=== PATIENT | female | born 1950 | race Caucasian/White ===

== ENCOUNTER → 2018-03-03 12:46 | Outpatient (CLI) | payer MEDICARE, SELFPAY ==
--- NOTE | 2018-03-03 | DI.US.S_ITS ---
PROCEDURE: US ABDOMEN COMPLETE INDICATIONS: HBV CARRIER TECHNIQUE: Real-time scanning was performed of the abdominal and retroperitoneal organs, with image documentation. COMPARISON: None. FINDINGS: Liver: Liver is normal in size and homogeneous in echotexture. Gallbladder: Gallbladder is clear with normal wall thickness Biliary ducts: Intrahepatic bile ducts are non-dilated. Extrahepatic bile duct caliber measures 5 mm. Normal is 6-7 mm or less in diameter, or 10 mm or less post-cholecystectomy. Pancreas: Pancreas is obscured by bowel gas Spleen: Spleen is normal in size and homogeneous in echotexture. Kidneys: Kidneys are normal in size and echotexture. Right kidney measures 9.5 cm long; left kidney measures 9.1 cm long. No hydronephrosis or nephrolithiasis. No solid masses. Aorta: Visualized aorta is normal in caliber at less than 3 cm. proximal aorta is obscured by bowel gas Iliacs: Proximal common iliac arteries are normal in caliber at less than 2.5 cm. IVC: Intrahepatic inferior vena cava is patent. Miscellaneous: No free abdominal fluid. IMPRESSION: 1. No acute findings are identified. Liver appears normal sonographically. 2. Pancreas and proximal abdominal aorta are obscured by bowel gas. Dictated by: Itz Omalley M.D. on 03/03/2018 at 15:21 Approved by: Itz Omalley M.D. on 03/03/2018 at 15:22
== END ==
PROVIDERS: PCP Family Medicine; Visit Provider Family Medicine
DX: B18.1 Chronic viral hepatitis B without delta-agent (principal)
CPT/HCPCS: 76700

== ENCOUNTER → 2018-03-29 16:21 | Outpatient (CLI) | payer MEDICARE, MEDICAID, SELFPAY ==
--- NOTE | 2018-03-29 | DI.RAD.S_ITS ---
PROCEDURE: XR HAND LT MIN 3V INDICATIONS: HAND PAIN TECHNIQUE: 3 views of the hand(s) acquired. COMPARISON: None. FINDINGS: Bones: No fractures or dislocations. Carpal bones are normally aligned. No suspicious bony lesions. Multilevel joint narrowing with periarticular osteophyte formation. Soft tissues: No suspicious soft tissue calcifications. IMPRESSION: No displaced fracture seen. If there is continued pain, followup exam or additional imaging such as MRI or CT could be performed for further assessment. Dictated by: Neil Griffin [facility] Interpreted: Rigoberto Doherty MD on 03/29/2018 at 17:14 Approved by: Rigoberto Doherty M.D. on 03/29/2018 at 19:51
== END ==
PROVIDERS: PCP Family Medicine; Visit Provider Physician Assistant
DX: M79.642 Pain in left hand (principal)
CPT/HCPCS: 73130

== ENCOUNTER → 2018-06-11 09:42 | Outpatient (CLI) | payer MEDICARE, MEDICAID, SELFPAY ==
[2018-06-11 10:08] LABS: RBC Urine None Seen (0-5/HPF)
[2018-06-11 10:41] LABS: Appearance Urine UA CLEAR; Bilirubin Urine UA NEGATIVE (NEGATIVE); Color Urine UA YELLOW; Glucose Urine UA NEGATIVE (Normal); Ketones Urine UA NEGATIVE (NEGATIVE); Leukocyte Esterase Urine UA TRACE (NEGATIVE); Nitrite Urine UA Negative (Negative); Occult Blood Urine UA NEGATIVE (Negative); Protein Urine UA NEGATIVE (Negative); Urobilinogen Urine UA 0.2 E.U./dL (0.2)
[2018-06-11 10:50] LABS: Bacteria Urine Occasional (0-1); Culture Indicated Urine Specimen Cultured; Squamous Epithelial Cell Urine 0-1 /HPF; WBC Urine 0-1/HPF (0-5/HPF)
== END ==
PROVIDERS: PCP Family Medicine; Visit Provider Physician Assistant
DX: N18.9 Chronic kidney disease, unspecified (principal)
CPT/HCPCS: 81001; 87086

== ENCOUNTER → 2018-08-26 10:38 | Outpatient (CLI) | payer MEDICARE, SELFPAY ==
--- NOTE | 2018-08-26 | DI.CT.S_ITS ---
PROCEDURE: CT HEAD/BRAIN WO CON INDICATIONS: Vertigo of central origin, right ear TECHNIQUE: Noncontrast 4.5 mm thick angled axial sections acquired from the foramen magnum to the vertex, with coronal and sagittal reformats. For radiation dose reduction, the following was used: automated exposure control, adjustment of mA and/or kV according to patient size. COMPARISON: None. FINDINGS: Image quality: Excellent. CSF spaces: Basal cisterns are patent. No extra-axial fluid collections. The ventricles are symmetric in size and shape. Brain: No intracranial bleeds or masses. There is cerebral volume loss for age, with resultant ventricular and sulcal prominence. There are periventricular and deep white matter chronic small vessel ischemic changes. There is intracranial internal carotid artery atherosclerosis. Skull and face: Calvarium and visualized facial bones appear intact, without suspicious lesions. Sinuses: Visualized sinuses and mastoids are clear. IMPRESSION: No CT evidence of acute intracranial pathology. Age-appropriate atrophy and mild periventricular white matter microangiopathic changes. Dictated by: Christos García M.D. on 08/26/2018 at 10:59 Approved by: Christos García M.D. on 08/26/2018 at 10:59
== END ==
PROVIDERS: PCP Family Medicine; Visit Provider Family Medicine
DX: H81.41 Vertigo of central origin, right ear (principal)
CPT/HCPCS: 70450

== ENCOUNTER 2021-08-18 20:42 | Emergency (ER) | payer MEDICARE, MEDICAID, SELFPAY ==
[2021-08-18 20:46] VITALS: BP 147/60; PULSE 101; PULSE 93; RESP 18; RESP 25; TEMP 36.4; O2SAT 96; O2SAT 98
[2021-08-18 20:53] VITALS: BP 147/60; PULSE 98; RESP 31; O2SAT 96
--- NOTE | 2021-08-18 20:53 | DI.RAD.S_ITS ---
PROCEDURE: XR CHEST 1V INDICATIONS: chest pain TECHNIQUE: One view of the chest was acquired. COMPARISON: [facility], , CHEST 2 VIEW, 08/12/2017, 14:21. FINDINGS: Surgical changes and devices: None. Lungs and pleura: Lungs are clear. No pleural effusions or pneumothorax. Mediastinum: Mediastinal contours appear normal. Heart size is normal. Bones and chest wall: No suspicious bony lesions. Overlying soft tissues appear unremarkable. IMPRESSION: No acute cardiopulmonary process demonstrated radiographically. Dictated by: Kwabena Arredondo M.D. on 08/18/2021 at 21:16 Approved by: Kwabena Arredondo M.D. on 08/18/2021 at 21:17
[2021-08-18 21:00] VITALS: BP 147/64; PULSE 85; RESP 8; O2SAT 95
[2021-08-18 21:02] LABS: Add Manual Diff / Slide Review NO; Basophils Absolute Auto 0 /uL (0-100); Basophils Percent Auto 0.3 % (0-2); Eosinophils Absolute Auto 200 /uL (0-450); Eosinophils Percent Auto 1.8 % (2-4); Hemoglobin 12.5 g/dL (12.0-16.0); Lymphocytes Absolute Auto 2900 /uL (1100-4500); Lymphocytes Percent Auto 27.9 % (25-40); Mean Corpuscular HGB Conc 33.8 % (30-36); Mean Corpuscular Hemoglobin 32.9 PG (26-34); Mean Corpuscular Volume 97.2 fL (80-100); Monocytes Absolute Auto 700 /uL (0-900); Monocytes Percent Auto 6.7 % (3-14); Neutrophils Absolute Auto 6600 /uL (1500-7000); Neutrophils Percent Auto 63.3 % (50-75); Platelet Count 319 X10^3/uL (150-400); Red Blood Cell Count 3.81 X10^6/uL (4.0-5.2); Red Cell Distribution Width 12.2 % (11.6-14.8); White Blood Cell Count 10.4 X10^3/uL (4.5-11.0)
[2021-08-18 21:22] LABS: Alanine Aminotransferase 17 IU/L (<35); Albumin 4.6 g/dL (3.5-5.0); Albumin Globulin Ratio 1.5 (1.0-2.8); Alkaline Phosphatase 76 U/L (38-126); Aspartate Aminotransferase 29 IU/L (14-36); BUN Creatinine Ratio 10.4 (6-22); Bilirubin Total 0.4 mg/dL (0.2-1.3); Blood Urea Nitrogen 16 mg/dL (7-17); Calcium 9.7 mg/dL (8.4-10.2); Carbon Dioxide 23 mmol/L (22-32); Chloride 102 mmol/L (98-107); Creatine Kinase 131 U/L (30-135); Estimated Glomerular Filt Rate 33.2 mL/min (>60); Globulin 3.1 g/dL (1.7-4.1); Glucose 171 mg/dL (80-110); HEMOLYSIS < 15 (0-50); Lipase 89 U/L (23-300); Potassium 3.9 mmol/L (3.4-5.1); Sodium 134 mmol/L (137-145); Total Protein 7.7 g/dL (6.3-8.2)
[2021-08-18 21:30] VITALS: PULSE 82; RESP 12; O2SAT 98
--- NOTE | 2021-08-18 21:30 | ED_ITS ---
HPI - Chest Pain General Chief Complaint: Chest Pain Stated Complaint: Chest pain/ Fit for skilled nursing Time Seen by Provider: 08/18/21 21:00 Source: patient and EMS Mode of arrival: EMS History of Present Illness HPI narrative: 70-year-old woman presents her police with complaints of chest pain experienced during arrest this evening. She states she has been having intermittent chest pain over the last number of weeks that currently has resolved but she does complain of right shoulder pain. There is no reports of injury to that area. She states that the chest pain has been the left anterior wall, is worse with palpation and deep breathing and has intermittently been present for the last month. It is deeper than her breast tissue when she has not had similar findings. Today she notes which she describes as right shoulder pain but on palpation is actually right trapezius muscle spasm with no reports of injury or trauma. She has no cervical spine tenderness. She has not had recent fever, cough, chills, abdominal pain, vomiting, diarrhea. No lower extremity edema, no headaches and no acute neurologic changes. Review of Systems Review of Systems Narrative: Remainder of complete review of systems is otherwise unremarkable except for that included in the HPI. Patient History Medical History Hyperlipidemia Hypertension Hypothyroidism (acquired) Exam Narrative Exam Narrative: General: Frail appearing woman, in no acute distress. Able to give a complete and coherent history. HEENT: Moist mucous membranes, normal sclera with reactive pupils, Neck: No JVD, muscle spasm and tenderness in the right trapezius muscle. She has no midline cervical spine tenderness. Respiratory: Lungs are clear to auscultation, no wheezing no rales no rhonchi. Full and symmetrical air movement Cardiac: Regular rate and rhythm no murmurs appreciated on my exam today, bruits Chest: Tenderness along the left anterior clavicular line approximately rib 6. Deeper than breast tissue with normal breast to palpation. Abdomen: Soft, nontender, good bowel tones, no flank pain Skin: Warm and dry, no rashes, no skin changes of the chest wall with area of tenderness Neurologic: Grossly neurologically intact with no obvious asymmetries or abnormalities Extremities: No trauma, well perfused. Right shoulder with full range of motion and no tenderness. Psych: Cooperative, appropriate insight and affect Initial Vital Signs Initial Vital Signs: Vital Signs Temperature 97.6 F 08/18/21 20:46 Pulse Rate 93 H 08/18/21 20:46 Respiratory Rate 18 08/18/21 20:46 Blood Pressure 147/60 H 08/18/21 20:46 Pulse Oximetry 96 08/18/21 20:46 Course Orders Ordered: ED Orders 08/18/21 20:50 Complete Blood Count AUTO DIFF Stat Comprehensive Metabolic Panel Stat Lipase Stat Magnesium Stat Troponin & CK Cardiac Panel Stat 08/18/21 20:53 XR chest 1V Stat EKG-12 Lead Stat Discontinued Medications Ketorolac Tromethamine (Ketorolac 30 Mg/Ml Vial) 15 mg IV NOW ONE Stop: 08/18/21 21:38 Last Admin: 08/18/21 21:49 Dose: 15 mg Documented by: DEQUAN Vital Signs Vital signs: Vital Signs - 8 hr 08/18/21 20:46 08/18/21 20:53 08/18/21 21:00 Temperature 97.6 F Pulse Rate 101 H 98 H 85 Respiratory Rate 25 H 31 H 8 L Blood Pressure 147/60 H 147/60 H 147/64 H Pulse Oximetry 98 96 95 08/18/21 21:30 08/18/21 21:53 Temperature Pulse Rate 82 74 Respiratory Rate 12 37 H Blood Pressure 114/71 Pulse Oximetry 98 98 MDM - Chest Pain Lab Data Result diagrams: 08/18/21 20:50 08/18/21 20:50 Labs: Lab Results 08/18/21 08/18/21 Range/Units 20:50 20:50 WBC 10.4 (4.5-11.0) X10^3/uL RBC 3.81 L (4.0-5.2) X10^6/uL Hgb 12.5 (12.0-16.0) g/dL Hct 37.0 (36-46) % MCV 97.2 (80-100) fL MCH 32.9 (26-34) PG MCHC 33.8 (30-36) % RDW 12.2 (11.6-14.8) % Plt Count 319 (150-400) X10^3/uL Neut % (Auto) 63.3 (50-75) % Lymph % (Auto) 27.9 (25-40) % Knott % (Auto) 6.7 (3-14) % Eos % (Auto) 1.8 L (2-4) % Baso % (Auto) 0.3 (0-2) % Neut # (Auto) 6600 (8355-3908) /uL Lymph # (Auto) 2900 (1455-5857) /uL Knott # (Auto) 700 (0-900) /uL Eos # (Auto) 200 (0-450) /uL Baso # (Auto) 0 (0-100) /uL Sodium 134 L (137-145) mmol/L Potassium 3.9 (3.4-5.1) mmol/L Chloride 102 (98-107) mmol/L Carbon Dioxide 23 (22-32) mmol/L BUN 16 (7-17) mg/dL Creatinine 1.54 H (0.52-1.04) mg/dL Estimated GFR 33.2 L (>60) mL/min BUN/Creatinine Ratio 10.4 (6-22) Glucose 171 H (80-110) mg/dL Calcium 9.7 (8.4-10.2) mg/dL Magnesium 2.0 (1.6-2.3) mg/dL Total Bilirubin 0.4 (0.2-1.3) mg/dL AST 29 (14-36) IU/L ALT 17 (<35) IU/L Alkaline Phosphatase 76 (38-126) U/L Total Creatine Kinase 131 (30-135) U/L CK-MB (CK-2) 1.00 (<2.37) ng/mL CK-MB (CK-2) Rel Index 0.8 L (1.5-5.0) % Troponin I < 0.012 (0.01-0.034) ng/mL Total Protein 7.7 (6.3-8.2) g/dL Albumin 4.6 (3.5-5.0) g/dL Globulin 3.1 (1.7-4.1) g/dL Albumin/Globulin Ratio 1.5 (1.0-2.8) Lipase 89 (23-300) U/L Imaging Data Chest x-ray: Radiologist's Impression: FINDINGS:? ? Surgical changes and devices:? None.? ? Lungs and pleura:? Lungs are clear.? No pleural effusions or pneumothorax.? ? Mediastinum:? Mediastinal contours appear normal.? Heart size is normal.? ? Bones and chest wall:? No suspicious bony lesions.? Overlying soft tissues appear unremarkable.? ? IMPRESSION:? No acute cardiopulmonary process demonstrated radiographically. ? ? Dictated by: Kwabena Arredondo M.D. on 08/18/2021 at 21:16 ? ? ECG Data Interpretation: Sinus tachycardia at 100 Normal axis, normal intervals No acute ischemic changes MDM Narrative Medical decision making narrative: 70-year-old woman with a month of intermittent left anterior chest wall pain consistent with musculoskeletal pain. No evidence of acute coronary syndrome, underlying pulmonary issue or abnormalities with breast tissue. Right trapezius muscle spasm uncertain etiology. There is no evidence of acute coronary syndrome, cardiac arrhythmias, pneumonias, pneumothorax, widened mediastinum, upper GI bleeding, surgical abdomen or evidence of infection. Patient is given a dose of IV Toradol. Reassurance is given. At this point she is fit for skilled nursing and safe for discharge with officers. Discharge Plan Departure Patient Disposition: Home Clinical Impression: Anterior chest wall pain, Trapezius muscle spasm Instructions: DI for Musculoskeletal Pain Activity Restrictions/Additional Instructions: Thank you for coming in today Your blood work was reassuring. There is no evidence of acute infection, heart attack or anemia. Your EKG was reassuring in your chest x-ray was normal. The pain that you are experiencing on the left side is very likely chest wall/musculoskeletal pain. Using ibuprofen or Tylenol will likely help with this. The right shoulder pain that you are experiencing is actually right trapezius muscle spasm. Without obvious identified injury the most likely explanation for this is that you slept wrong last night and the muscle is a bit irritated. At this time there is no reason for additional intervention or hospitalization. You are safe for discharge Fit for skilled nursing Referrals: Shakira Fitzpatrick MD [Primary Care Provider] -
[2021-08-18 21:33] LABS: Troponin I < 0.012 ng/mL (0.01-0.034)
[2021-08-18 21:37] LABS: CKMB % Relative Index 0.8 % (1.5-5.0)
[2021-08-18] MEDS: KETOROLAC 30 MG/ML VIAL 15 MG IV (21:49)
[2021-08-18 21:53] VITALS: BP 114/71; PULSE 74; RESP 37; O2SAT 98
== END 2021-08-18 22:04 | disposition home or self-care (01) ==
PROVIDERS: Emergency Provider Emergency Medicine; PCP Family Medicine
DX: Z02.89 Encounter for other administrative examinations (principal); R07.89 Other chest pain; M62.838 Other muscle spasm; R00.0 Tachycardia, unspecified
CPT/HCPCS: 36415; 71045; 80053; 82550; 82553; 83690; 83735; 84484; 85025; 93005; 93010; 96374; 99284; J1885

== ENCOUNTER 2022-05-03 09:27 | Emergency (ER) | payer MEDICARE, MEDICAID, SELFPAY ==
[2022-05-03 09:37] VITALS: BP 177/72; PULSE 60; RESP 14; TEMP 36.8; O2SAT 98; BMI 26.2
--- NOTE | 2022-05-03 09:40 | DI.RAD.S_ITS ---
PROCEDURE: XR WRIST RT MIN 3V INDICATIONS: Wrist pain/swelling TECHNIQUE: 4 views of the wrist were acquired. COMPARISON: None. FINDINGS: Bones: There is a transverse, mildly impacted fracture of the distal radius, with mild dorsal angulation. There is believed to be intra-articular involvement, yet this is not well seen. There is an associated mildly displaced ulnar styloid fracture, with fragmentation. No radiocarpal dislocation can be seen. No lunate dislocation is seen. Age-appropriate bony degenerative changes are seen. Scaphoid view: No navicular fractures are seen. Soft tissues: No suspicious soft tissue calcifications. IMPRESSION: Distal radius fracture, with mild impaction and comminution. There is dorsal angulation. There is believed to be intra-articular involvement, although this is not well seen. There is an associated mildly displaced, fragmented fracture of the ulnar styloid. Dictated by: Loi Chacon M.D. on 05/03/2022 at 9:08 Approved by: Loi Chcaon M.D. on 05/03/2022 at 9:09
--- NOTE | 2022-05-03 09:47 | ED_ITS ---
HPI - Extremity Injury (Upper) General Chief Complaint: Extremity Injury, Upper Stated Complaint: Fell on right arm Time Seen by Provider: 05/03/22 09:47 Source: patient Mode of arrival: Ambulatory Limitations: no limitations History of Present Illness HPI narrative: This is a 71-year-old female with history of hypertension dyslipidemia hypothyroidism who presents for a ground level fall after tripping over some objects in her home. Patient states it occurred last night she fell on an outstretched hand. She is had pain swelling a little bit of deformity since then. She denies any numbness or tingling she states she is able to fully flex and extend her fingers which is only mildly painful. Patient does have some bruising of the dorsum of the hand and the wrist as well as some swelling. No issues with movement of the thumb. Patient denies injuries elsewhere. She did not strike her head no neck or back pain. She is not anticoagulated. She denies any other injuries or surgeries to that area. No known drug allergies. No tobacco, alcohol or illicit. Patient notes she took a dose of Tylenol this morning for pain she defers anything additional at this time. Related Data Previous Rx's Medication Instructions Recorded oxycodone 5 mg tablet 5 mg PO Q6H PRN pain #14 tabs 05/03/22 Allergies Allergy/AdvReac Type Severity Reaction Status Date / Time No Known Drug Allergies Allergy Verified 05/03/22 09:36 Review of Systems Review of Systems ROS Unobtainable: All systems reviewed & are unremarkable except as noted in HPI and below Patient History Medical History Hyperlipidemia Hypertension Hypothyroidism (acquired) Social History Smoking Status: Never smoker Smoking Status: Never smoker Substance Use Type: does not use Exam Narrative Exam Narrative: GENERAL: Alert and oriented x three, elderly female in mild distress HEENT: Head normocephalic, atraumatic, EOMI, pupils reactive, face symmetric, moist mucous membranes NECK: Supple, full range of motion CARDIOVASCULAR: Regular rate and rhythm without murmurs, rubs or gallops. RESPIRATORY: Breath sounds equal bilaterally, no wheezes rales or rhonchi. ABDOMEN: Soft, nontender. Normoactive bowel sounds all 4 quadrants. No guarding or rebound, rigidity, no mass EXTREMITIES: Decreased range of motion at the wrist, full range of motion of all 5 fingers flexion extension, adduction and abduction, patient has mild deformity comparison to the alternative hand. There is ecchymosis over the dorsum of the hand extending over the wrist. There is generalized swelling of the wrist and hand. No erythema, no warmth. Patient has full range of motion at the elbow and shoulder with no other bony tenderness except over the distal radius and ulna. Patient has 2+ radial pulse. Cap refill less than 2 seconds all 5 fingers No clubbing or edema. Neurovascularly intact. Normal sensation throughout all 5 fingers. NEUROLOGICAL: Cranial nerves II through XII grossly intact. Moving all extremities SKIN: Warm, dry, no petechiae, no rashes or lesions, no lacerations or cuts to t he hand or forearm. Initial Vital Signs Initial Vital Signs: Vital Signs Temperature 98.2 F 05/03/22 09:37 Pulse Rate 60 05/03/22 09:37 Respiratory Rate 14 05/03/22 09:37 Blood Pressure 177/72 H 05/03/22 09:37 Pulse Oximetry 98 05/03/22 09:37 Oxygen Delivery Method 05/03/22 09:37 Procedures Nerve Block Nerve Block 1: Time of procedure: 10:10 Time out performed: Yes Local Anesthetic: lidocaine 1% Amount of anesthesia used (mL): 4 Side: right Nerve Blocks: hematoma block (distal wrist) Procedure Successful: Yes Patient Tolerated Procedure: Well Complications: none Orthopedic Splinting/Casting Injury #1: Time of procedure: 10:22 Upper Extremity Injury Location: wrist Upper Extremity Immobilizer: sugar tong splint Post splinting neuro exam: intact and no change Post splinting vascular exam: intact Placed by: Provider Course Orders Ordered: ED Orders 05/03/22 09:40 XR wrist RT min 3V Stat Vital Signs Vital signs: Vital Signs - 8 hr 05/03/22 09:37 Temperature 98.2 F Pulse Rate 60 Respiratory Rate 14 Blood Pressure 177/72 H Pulse Oximetry 98 Oxygen Delivery Method Room Air MDM - Extremity Injury (Upper) Imaging Data Extremity x-ray #1: Radiologist's Impression: [address] [address] XRay Report Signed Patient: Maricruz Concepcion MR#: [id number] : 1950 Acct:[id number] Age/Sex: 71 / F Date of Service: 05/03/22 Loc: ED Accession Number: [id number] ?? Procedure: XR wrist RT min 3V Ordering Provider: Juana Vizcaino D.O. PROCEDURE:? XR WRIST RT MIN 3V ? INDICATIONS: Wrist pain/swelling ? TECHNIQUE:? 4 views of the wrist were acquired.? ? COMPARISON:? None. ? FINDINGS:? ? Bones:? There is a transverse, mildly impacted fracture of the distal radius, with mild dorsal angulation.? There is believed to be intra-articular involvement, yet this is not well seen. ? There is an associated mildly displaced ulnar styloid fracture, with fragmentation. ? No radiocarpal dislocation can be seen.? No lunate dislocation is seen. ? Age-appropriate bony degenerative changes are seen.? ? Scaphoid view:? No navicular fractures are seen. ? Soft tissues:? No suspicious soft tissue calcifications.? ? ? IMPRESSION:? ? Distal radius fracture, with mild impaction and comminution.? There is dorsal angulation. ?There is believed to be intra-articular involvement, although this is not well seen. ? There is an associated mildly displaced, fragmented fracture of the ulnar styloid.? ? ? Dictated by: Loi Chacon M.D. on 05/03/2022 at 9:08 ? ? Approved by: Loi Chacon M.D. on 05/03/2022 at 9:09?? MDM Narrative Medical decision making narrative: This is a 71-year-old female who is on anticoagulated with mechanical ground level fall on outstretched hand with mild deformity suspicious for fracture with bruising and swelling. X-ray was obtained and shows distal radius and ulnar fracture with likely intra-articular involvement. Patient had hematoma block with improvement of pain, sugar-tong splint was placed by myself with mild direct manipulation at the dorsal fragment and discussed follow-up. Return precautions. Patient neurovascularly intact post splint placement. All questions answered. Discharge Plan Departure Patient Disposition: Home Clinical Impression: Distal radius fracture, right, Right distal ulnar fracture Instructions: DI for Wrist Fracture Activity Restrictions/Additional Instructions: Follow-up with orthopedic surgery in the next week for recheck. Please call for an appointment on Thursday morning for the next week. You may take Tylenol up to a 1000 mg every 6 hours needed for pain and/or ibuprofen up to 600 mg every 6 hours You can take narcotic pain medication 1-2 tablets as needed in addition. This medication can make you sleepy do not drive, perform hazardous activities or make any major decisions while taking it. This medication will make you constipated please take a stool softener once to twice daily until stools are soft and regular. Prescription sent to [facility] Splint Care: Keep splint clean and dry. Elevated affected body part to decrease swelling. OK to use ice pack on the affected body part. Use for 15-20 minutes each time, for 5-6x per day. If you develop worsening pain, numbness, tingling, discoloration of the affected body part, loosen the splint by loosening the CHELSIE wrap, and either see your doctor f or an urgent re-assessment, or return to the Emergency Department. Return to the Emergency Department for any new or worsening symptoms. Prescriptions: New oxycodone 5 mg tablet 5 mg PO Q6H PRN (Reason: pain) Qty: 14 0RF Referrals: Shakira Fitzpatrick MD [Primary Care Provider] - Ross Toscano MD [Physician] - Visit Report Forms: Patient Portal/API
[2022-05-03] MEDS: LIDOCAINE 1% (PF) 4 ML (10:42)
== END 2022-05-03 10:47 | disposition home or self-care (01) ==
PROVIDERS: Emergency Provider Emergency Medicine; PCP Family Medicine
DX: S52.501A Unspecified fracture of the lower end of right radius, initial encounter for closed fracture (principal); S52.601A Unspecified fracture of lower end of right ulna, initial encounter for closed fracture; W19.XXXA Unspecified fall, initial encounter
CPT/HCPCS: 29105; 64450; 73110; 99284

== ENCOUNTER → 2024-11-12 08:29 | Outpatient (CLI) | payer MEDICARE, MEDICAID, SELFPAY ==
--- NOTE | 2024-11-12 08:33 | DI.MRI.S_ITS ---
PROCEDURE: MR HEAD/BRAIN WO CON INDICATIONS: MILD COGNITIVE IMPAIRMENT TECHNIQUE: Non-contrast axial T1 spin echo, axial T2 fast spin echo, sagittal and axial FLAIR, coronal T2 fast spin echo, axial gradient echo, axial diffusion and ADC through the brain. COMPARISON: None. FINDINGS: Image quality: Excellent. CSF spaces: Ventricles appear symmetric in size and shape. Basal cisterns are patent. No extra-axial fluid collections. Brain: No intracranial bleeds or mass effects. There is cerebral volume loss for age. There are periventricular and deep white matter chronic small vessel ischemic changes. Brainstem appears normal. Diffusion-weighted images show no acute infarct. No chronic ischemic insults. Normal intravascular flow voids are present. Skull and face: Calvarial bone marrow is normal in signal. Orbits are normal. Sinuses: Sinuses and mastoids are clear. IMPRESSION: Mild age-related global volume loss and chronic microvascular ischemic changes. No acute or subacute infarct. No acute intracranial abnormalities. Dictated by: Arcadio Bradford M.D. on 11/14/2024 at 8:40 Approved by: Arcadio Bradford M.D. on 11/14/2024 at 8:42
== END ==
PROVIDERS: PCP Family Medicine; Referring Provider Family Medicine; Visit Provider Family Medicine
DX: R29.818 Other symptoms and signs involving the nervous system (principal); G31.84 Mild cognitive impairment of uncertain or unknown etiology
CPT/HCPCS: 70551

== ENCOUNTER → 2024-12-16 11:09 | Outpatient (CLI) | payer MEDICARE, MEDICAID, SELFPAY ==
--- NOTE | 2024-12-16 11:10 | DI.RAD.S_ITS ---
PROCEDURE: XR DEXA AXIAL SKELETON INDICATIONS: POSTMENOPAUSAL ESTROGEN DEFICIENCY COMPARISON: [facility], , DEXA AXIAL SKELETON, 01/16/2015, 13:49. FINDINGS: Lumbar Spine: Bone mineral density 0.812 g/cm2, T score -1.9, decreased by 14.5%. Left Femoral Neck: Bone mineral density 0.723 g/cm2, T score -1.1. Left Hip: Bone mineral density 0.923 g/cm2, T score -0.2, increased by 3.5%. Fracture Risk Calculation (when applicable): 10-year fracture risk of a major osteoporotic fracture 10 percent and of a hip fracture 1.6 percent. (T score greater or equal to -1.0 to: NORMAL) (T score from -1.1 to -2.4: OSTEOPENIA) (T score less than or equal to -2.5: OSTEOPOROSIS) IMPRESSION: Low bone mineral density (osteopenia) by WHO classification. Follow-up guidelines as follows: Osteoporosis: Consider a repeat DEXA and Vertebral Fracture Assessment (VFA) exam in 2 years or sooner if medically necessary, to reassess this patient's status. Osteopenia: Consider a repeat DEXA in 2-3 years to reassess this patient's status, or if there is a new clinical indication. Normal: Consider a repeat DEXA in 5 years or sooner, or if there is a new clinical indication. All treatment decisions require clinical judgment and consideration of individual patient factors, including patient preferences, comorbidities, previous drug use, risk factors not captured in the FRAX model (e.g., frailty, falls, vitamin D deficiency, increased bone turnover, interval significant decline in bone density ) and possible under- or over-estimation of fracture risk by FRAX. In addition, the NOF Guide recommends that FDA-approved medical therapies be considered in postmenopausal women and men age >= 50 years with a: * Hip or vertebral (clinical or morphometric) fracture * T-score of <=-2.5 at the spine or hip * Ten-year fracture probability by FRAX of >= 3% for hip fracture or >=20% for major osteoporotic fracture. Dictated by: Arcadio Bradford M.D. on 12/18/2024 at 21:41 Approved by: Arcadio Bradford M.D. on 12/18/2024 at 21:42
== END ==
PROVIDERS: PCP Family Medicine; Referring Provider Family Medicine; Visit Provider Family Medicine
DX: M85.89 Other specified disorders of bone density and structure, multiple sites (principal); Z78.0 Asymptomatic menopausal state
CPT/HCPCS: 77080

== ENCOUNTER → 2024-12-20 08:01 | Outpatient (CLI) | payer MEDICARE, MEDICAID, SELFPAY ==
--- NOTE | 2024-12-20 08:04 | DI.ECHO.S_ITS ---
[facility] : : [address] : : [place] : : [id number] : : Phone: [phone] Echocardiogram Report + + :Name: CHRIS ALVA Study Date: 12/20/2024 Height: 59 in : :Hospital ReadingLocation: Weight: 126 lb : : Gender: Female BSA: 1.5 m2 : :: 1950 Age: 74 yrs BP: 135/67 mmHg: :Reason For Study: Murmur : :Ordering Physician: EMMY, : :CONNIE Performed By: Elisa Schrader : :Referring: CONNIE BOOTH : + + Interpretation Summary The left ventricle is normal in size and wall thickness. Left ventricular systolic function appears normal without focal wall motion abnormalities. The ejection fraction is estimated to be 55-60%. Diastolic parameters suggest a relaxation abnormality of the left ventricle, consistent with probable normal filling pressures. The right ventricle grossly appears normal in size with probable normal systolic function. The right ventricular systolic pressure is estimated to be at least 26 mmHg based on an estimated right atrial pressure of 3 mm Hg. The left atrium is moderately dilated. There is mild mitral regurgitation. The aortic root is normal size. Procedure: A two-dimensional transthoracic echocardiogram with color flow and Doppler was performed. The study quality was technically adequate. There is no prior echocardiogram noted for this patient. The heart rate ranged between 59-64 bpm during the study. Left Ventricle: The left ventricle is normal in size and wall thickness. Left ventricular systolic function appears normal without focal wall motion abnormalities. The ejection fraction is estimated to be 55-60%. Diastolic parameters suggest a relaxation abnormality of the left ventricle, consistent with probable normal filling pressures. Right Ventricle: The right ventricle grossly appears normal in size with probable normal systolic function. Atria: The left atrium is moderately dilated. Right atrial size is normal. The interatrial septum grossly appears intact with no obvious evidence for an atrial septal defect. Mitral Valve: The mitral valve leaflets appear borderline thickened, but open well. There is mild mitral regurgitation. Aortic Valve: The aortic valve is trileaflet. The aortic valve opens well. There is trace aortic regurgitation. Tricuspid Valve: The tricuspid valve leaflets are thin and pliable. There is trace tricuspid regurgitation. The right ventricular systolic pressure is estimated to be at least 26 mmHg based on an estimated right atrial pressure of 3 mm Hg. Pulmonic Valve: The pulmonic valve is not well seen, but is grossly normal. There is trace pulmonic regurgitation. Great Vessels: The aortic root is normal size. The ascending aorta is normal in size. The aortic arch is normal in size. The IVC is of normal diameter and collapses greater than 50% with a sniff. This suggests a low right atrial pressure of 3 mm Hg. Pericardium/ Pleura There is no pericardial effusion. There is no pleural effusion. MMode/2D Measurements & Calculations LVIDd: 4.4 cm LVOT diam: 1.8 cm LVIDs: 2.7 cm Ao root diam: 2.9 cm FS: 39.3 % asc Aorta Diam: 3.2 cm EPSS: 0.53 cm Ao Arch Diam (Prox Trans): 2.8 cm IVSd: 0.85 cm LVPWd: 0.68 cm LV guevara. diameter/BSA (cm/m^2): 2.9 LV sys. diameter/BSA (cm/m^2): 1.8 LA A2 area: 24.3 cm2 RA long axis: 4.6 cm LA A4 area: 20.3 cm2 RA area: 13.4 cm2 LA length (vol): 5.7 cm RA vol: 32.9 ml LA vol: 73.3 ml RA : 21.7 ml/m2 LA vol index: 48.4 ml/m2 RVD1 (basal): 3.7 cm TAPSE: 2.1 cm Doppler Measurements & Calculations Ao V2 max: 135.2 cm/sec LVOT Max Clint: 88.6 cm/sec Ao V2 mean: 84.2 cm/sec LV V1 max P.1 mmHg Ao max P.3 mmHg LV V1 VTI: 23.6 cm Ao mean P.4 mmHg EMILY(I,D): 1.8 cm2 Ao V2 VTI: 34.1 cm EMILY(V,D): 1.7 cm2 sev ratio: 0.69 EMILY indexed to BSA (cm^2/m^2): 1.2 MV E max clint: 76.9 cm/sec TR max clint: 242.0 cm/sec MV A max clint: 95.0 cm/sec TR max P.4 mmHg MV E/A: 0.81 PA V2 max: 59.0 cm/sec Med Peak E' Clint: 6.9 cm/sec PA V2 mean: 40.3 cm/sec E/E' med: 11.2 PA mean P.74 mmHg Lat Peak E' Clint: 8.5 cm/sec PA pr(Accel): -1.5 mmHg E/E' lat: 9.0 E/e' average: 10.1 MV dec time: 0.21 sec Pulm A Revveronica Clint: 31.6 cm/sec SV(TORO): 61.9 ml Reading Physician:02:44 PM
--- NOTE | 2024-12-20 08:04 | DI.US.S_ITS ---
PROCEDURE: US RENAL COMPLETE INDICATIONS: Kidney disease TECHNIQUE: Real-time scanning was performed of the kidneys and bladder, with image documentation. Thirty-three images. COMPARISON: None. FINDINGS: Moderate diffuse increased echogenicity bilaterally with mild cortical thinning on the right commonly medical renal disease. Kidneys: Kidneys are normal in size. Right kidney measures 8.7 cm long; left kidney measures 9.8 cm long. Right renal cortical thickness is 0.9 cm; left renal cortical thickness is 1.5 cm. Renal cortical echotexture is normal. No hydronephrosis or nephrolithiasis. No suspicious solid mass lesions. Bladder: Pre-void bladder volume is 12 mL. Post-void residual is not measured. On pre-void images, neither ureteral jets are noted with color Doppler interrogation. (Of note, ureteral jets may not be detectable in up to 25% of cases due to insufficient differences in specific gravity between ureteral and bladder urine). Miscellaneous: Mild diffuse increased echogenicity of the liver commonly mild hepatic steatosis. No free pelvic fluid. IMPRESSION: Moderate diffuse increased echogenicity of the kidneys with cortical thinning on the right commonly medical renal disease. Dictated by: Nito Ny M.D. on 12/20/2024 at 10:07 Approved by: Nito Ny M.D. on 12/20/2024 at 10:38
== END ==
LOC: US 08:02
PROVIDERS: PCP Family Medicine; Referring Provider Family Medicine; Visit Provider Family Medicine
DX: N18.31 Chronic kidney disease, stage 3a (principal); I34.0 Nonrheumatic mitral (valve) insufficiency
CPT/HCPCS: 76770; 93306